=== PATIENT | male | born 1995 | race Caucasian/White ===

== ENCOUNTER 2017-09-19 21:44 | Emergency (ER) | payer BC ==
[~2017-09-19] VITALS: Ht 185.4 cm; Wt 84.6 kg
[~2017-09-19 21:44] MED LIST: FLEXERIL10 MG PO; MOTRIN800 MG PO
[2017-09-19 22:05] VITALS: BP 153/90
== END 2017-09-20 01:20 | disposition left against medical advice (07) ==
LOC: EME 21:44
DX: S09.90XA Unspecified injury of head, initial encounter (principal); Z53.21 Procedure and treatment not carried out due to patient leaving prior to being seen by health care provider
CPT/HCPCS: 70450